=== PATIENT | male | born 1990 ===

== ENCOUNTER 2019-08-29 05:15 | Inpatient (IN) | payer OTHER ==
[2019-08-29] VITALS (8 sets, daily range): BP systolic 104–127; BP diastolic 59–80
[~2019-08-29] VITALS: Ht 179.1 cm; Wt 85.7 kg
[~2019-08-29 05:15] MED LIST: TRUVADA 200 MG1 EAC1 ORAL
[2019-08-29] MEDS ORDERED: Rocuronium Bromide 50mg/5ml Inj IV ONE (06:18)
[2019-08-29] MEDS ORDERED: LR 1000ml 1,000 ML IVLG SCH (06:28)
[2019-08-29] MEDS ORDERED: oxyCODONE HCL/Acetaminophen 5/325mg ORAL PRN (06:30)
[2019-08-29] MEDS ORDERED: Hydromorphone 0.5mg/0.5ml inj IVP PRN (06:30)
[2019-08-29] MEDS ORDERED: Ketorolac 30mg Inj IV PRN ×2 (06:30)
[2019-08-29] MEDS ORDERED: LORazepam Inj 2mg/ml 1ml IV PRN (06:30)
[2019-08-29] MEDS ORDERED: Acetaminophen (Non formulary) 100 ML IV ONE (06:30)
[2019-08-29] MEDS ORDERED: Midazolam 2mg/2ml Inj IVP PRN (06:30)
[2019-08-29] MEDS ORDERED: Metoclopramide 10mg/2ml Inj IVP PRN ×2 (06:30→07:30)
[2019-08-29] MEDS ORDERED: Meperidine 50mg/ml Inj(FOR RIGORS ONLY) IVP PRN (06:30)
[2019-08-29] MEDS ORDERED: DiphenhydrAMINE 50mg/ml Inj IVP PRN (06:30)
[2019-08-29] MEDS ORDERED: Labetalol 5mg/ml 20ml vial IV PRN (06:30)
[2019-08-29] MEDS ORDERED: Atropine Sulfate 0.4mg/ml inj IVP PRN (06:30)
[2019-08-29] MEDS ORDERED: fentaNYL 100 mcg/2 mL IV PRN (06:30)
[2019-08-29] MEDS ORDERED: HYDROcodone/Acetamin 5/325 tab ORAL PRN ×2 (06:30→07:30)
[2019-08-29] MEDS ORDERED: HYDROcodone/Acetamin 7.5/325 tab ORAL PRN ×3 (06:30→07:30)
--- NOTE | 2019-08-29 06:31 | Anethesia Preoperative Eval ---
Anesthesia Pre-op PMH/ROS General Date of Evaluation: Aug 29, 2019 Time of Evaluation: 07:21 Anesthesiologist: Jeimy ASA Score: ASA 1 Mallampati Score Class I : Soft palate, uvula, fauces, pillars visible Class II: Soft palate, uvula, fauces visible Class III: Soft palate, base of uvula visible Class IV: Only hard plate visible Mallampati Classification: Class I Surgeon: Elizabeth Diagnosis: Neck Pain Surgical Procedure: ADR C5-6 Family History: no anesthesia problems Allergies: Coded Allergies: No Known Allergies (Unverified , 08/26/19) Medications: see eMAR Patient NPO?: Yes NPO Date: Aug 28, 2019 NPO Time: 2300 Past Medical History Neurologic/Psychiatric: Reports: depression/anxiety PSxH Narrative: ORIF R ankle, R thumb Anesthesia Pre-op Phys. Exam Physician Exam Last Vital Signs Date Time Temp Pulse Resp B/P (MAP) Pulse Ox O2 Delivery O2 Flow Rate FiO2 08/29/19 06:01 97.9 63 20 115/72 (86) 100 08/29/19 05:52 Room Air Constitutional: NAD Neurologic: CN 2-12 intact Cardiovascular: RRR Respiratory: CTA Gastrointestinal: S/NT/ND Airway Exam Mallampati Score: Class I MO: full ROM: limited Teeth: intact Anesthesia Pre-op A/P Risk Assessment & Plan Assessment: ASA 1 Plan: GA, SED, GlideScope Go Status Change Before Surgery: No Pre-Antibiotics Dru Grams Ancef IV Given Within 1 Hr of Incision: Yes Time Given: 07:41 Josesito Munson MD Aug 29, 2019 06:31
[2019-08-29] MEDS ORDERED: Sodium Chloride 10ml vial INJ ONE (06:40)
[2019-08-29] MEDS ORDERED: Lidocaine 1% MPF 10mg/ml 5ml ONE (06:40)
[2019-08-29] MEDS ORDERED: Dexamethasone 4mg/ml vial ONE (06:40)
[2019-08-29] MEDS ORDERED: fentaNYL 100 mcg/2 mL IV ONE ×2 (06:41→09:06)
[2019-08-29] MEDS ORDERED: Bacitracin 50000 Units Vial ONE (06:52)
[2019-08-29] MEDS ORDERED: Thrombin 5000 units TOPIC ONE (06:52)
[2019-08-29] MEDS ORDERED: Gelfoam Size TOPIC ONE (06:52)
[2019-08-29] MEDS ORDERED: Vancomycin 1gm vial IVPB ONE (06:52)
[2019-08-29] MEDS ORDERED: Propofol 1,000mg/ 100ml btl IV ONE (07:00)
[2019-08-29] MEDS ORDERED: ceFAZolin sod 2 GM in D5W 110 ML IVPB ONE (07:00)
[2019-08-29] MEDS ORDERED: Lidocaine 1% Plain 30 ml INJ ONE (07:05)
--- NOTE | 2019-08-29 07:23 | Pre-Procedure Note/Attestation ---
Pre-Procedure Note/Attestation Complete Prior to Procedure Planned Procedure: not applicable Procedure Narrative: Cervical 56 artificial disc replacement Indications for Procedure Pre-Operative Diagnosis: C56 herniation Attestation I attest that I discussed the nature of the procedure; its benefits; risks and complications; and alternatives (and the risks and benefits of such alternatives ), prior to the procedure, with the patient (or the patient's legal field sales representative). I attest that, if there was a reasonable possibility of needing a blood transfusion, the patient (or the patient's legal field sales representative) was given the [facility] standardized written summary, pursuant to the Fidel Pickrell Blood Safety Act ([place] Health and Safety Code # 1645, as amended). I attest that I re-evaluated the patient just prior to the surgery and that there has been no change in the patient's H&P, except as documented below: Manny Johnson MD Aug 29, 2019 07:23
--- NOTE | 2019-08-29 07:24 | Brief Operative Note ---
Immediate Post Operative Note Operative Note Chief Complaint: neck pain and shoulder interscapular pain bilateral Pre-op Diagnosis: C56 herniation Procedure: Cervical 56 artificial disc replacement Post-op Diagnosis: same as pre-op Findings: consistent w/pre-op dx studies Surgeon: Elizabeth Center Hole Reamer: Nate Anesthesia: general Specimen: none Complications: none Condition: stable Fluids: IV Estimated Blood Loss: minimal Drains: none Implant(s) used?: Yes - Prodisc c sz 5 Manny Johnson MD Aug 29, 2019 07:24
[2019-08-29] MEDS ORDERED: NS Irrig 1000ml ONE (07:30)
[2019-08-29] MEDS ORDERED: Milk of Magnesia 30ml Ud ORAL PRN (07:30)
[2019-08-29] MEDS ORDERED: Sterile Water Irrig 1000ml IRRIG ONE (07:30)
[2019-08-29] MEDS ORDERED: HYDROmorphone 1mg/ml Carpuject IVP PRN (07:30)
[2019-08-29] MEDS ORDERED: Morphine Sulfate 4mg/ml Inj (IV USE ONLY) IV PRN ×2 (07:30)
[2019-08-29] MEDS ORDERED: LR 1000ml ONE (07:30)
[2019-08-29] MEDS ORDERED: Morphine Sulfate 2mg/ml Inj(IV/IM USE ONLY) IV PRN (07:30)
[2019-08-29] MEDS ORDERED: Naloxone 0.4mg/ml Inj IVP PRN (07:30)
[2019-08-29] MEDS ORDERED: Chloraseptic Spray 20mL Bottle ORAL PRN (07:30)
[2019-08-29] MEDS ORDERED: Neostigmine 1mg/ml 10ml Inj ONE (07:30)
[2019-08-29] MEDS ORDERED: Glycopyrrolate 0.2mg/ml 1ml Vial ONE (08:57)
[2019-08-29] MEDS ORDERED: Docusate 100mg cap ORAL SCH (09:00)
--- NOTE | 2019-08-29 09:34 | Immediate Post-Op Evaluation ---
Immediate Post-Op Evalulation Immediate Post-Op Evalulation Procedure: ADR C5-6 Date of Evaluation: Aug 29, 2019 Time of Evaluation: 09:45 IV Fluids: 800 LR Blood Products: 0 Estimated Blood Loss: 25 Urinary Output: 200 Blood Pressure Systolic: 108 Blood Pressure Diastolic: 63 Pulse Rate: 59 Respiratory Rate: 16 O2 Sat by Pulse Oximetry: 100 Temperature (Fahrenheit): 97 Pain Score (1-10): 2 Nausea: No Vomiting: No Complications 0 Patient Status: awake, patent, extubated, none Hydration Status: adequate Dru Grams Ancef IV Given Within 1 Hr of Incision: Yes Time Given: 07:41 Josesito Munson MD Aug 29, 2019 09:34
--- NOTE | 2019-08-29 09:50 | Diagnostic Imaging Report ---
INDICATION: Pain, intraoperative TECHNIQUE: Intraoperative imaging Fluoroscopy time: 38.9 seconds Total dose: 0.50113 mGym2 Total number of images: 3 COMPARISON: None FINDINGS: Intraoperative images document placement of a disc prosthesis at the C5-6 level. This appears well aligned. IMPRESSION: Intraoperative imaging, as described
--- NOTE | 2019-08-29 10:17 | NUR ---
CASE MANAGEMENT:REVIEW 29 YR OLD MALE HERE FOR ELECTIVE SURGERY SI: NECK PAIN AND SHOULDER INTERSCAPULAR PAIN 97.9 63 20 115/72 100% ON RA IS: TO SURGERY: CERVICAL ARTIFICIAL DISC REPLACEMENT : CURRENTLY IN SURGERY INTERQUAL CRITERIA MET
--- NOTE | 2019-08-29 10:50 | NUR ---
NURSE NOTES: Received patient from recovery,patient is awake and alert and oriented.Dermabond to neck area intact,ice pack to area as ordered.02 0n at2 L N/ C. IV in the left arm intact.Call light within reach
[2019-08-29] MEDS ORDERED: Dexamethasone 4mg/ml vial IVP SCH (12:00)
[2019-08-29] MEDS ORDERED: NS w/KCl 20mEq 1000ml 1,000 ML IV SCH (12:00)
--- NOTE | 2019-08-29 13:49 | NUR ---
PT EVALUATION NOTE Patient seen for initial evaluation. Patient educated in log roll technique and cervical precautions. Patient demonstrates independence with all functional mobility and proper log roll technique. Skilled inpatient PT intervention not indicated, patient discharged from PT, Viviana WALKER notified. Addendum: 08/29/19 at 1350 by HARSHAL POWERS PT Amended: Links added.
--- NOTE | 2019-08-29 14:45 | Operative Note - Dictated ---
DATE OF OPERATION: 08/29/2019 SURGEON: Manny Johnson MD, Orthopedic Spine Surgeon. WELDER ASSISTANT: ADAMA Estrella. PREOPERATIVE DIAGNOSES: 1. Intractable neck pain. 2. Radiculopathy. 3. Herniation, C5-C6. 4. Neural foraminal stenosis C5-C6. 5. Stenosis. POSTOPERATIVE DIAGNOSES: 1. Intractable neck pain. 2. Radiculopathy. 3. Herniation, C5-C6. 4. Neural foraminal stenosis C5-C6. 5. Stenosis. PROCEDURE PERFORMED: 1. Anterior cervical discectomy and artificial disc replacement of C5-C6 using a Synthes Prodisc C 5 height. 2. Use of intraoperative microscope. 3. Motor evoked potential monitoring. 4. Somatosensory evoked potential monitoring. 5. Supervision and interpretation of fluoroscopy. COMPLICATIONS: None. ANESTHESIA: General. ESTIMATED BLOOD LOSS: Less than 100 mL. INDICATIONS FOR SURGERY: Mr. Zuniga presents today for artificial disc replacement at C5-C6. This patient is a 29-year-old male who has a history of diagnoses as listed above. As of result of this, the patient sustained intractable neck pain, radiculopathy, herniation C5-C6, neural foraminal stenosis C5-C6, stenosis. We tried a course of conservative management but despite this course there was still a significant component of persistent, recalcitrant neck pain and arm pain. The MRI demonstrated significant neural foraminal compromise secondary to disc herniations at C5-C6. For this pain in the past, he has undergone therapy with Dr. Gerard at [facility]. He tried ice packs and even electrotherapy. He tried medications in the form of Motrin, aspirin, ibuprofen, codeine, and [place]. He had also undergone a course of conservative management with Dr. Harmon, which included injections as well as a block at C5-C6. On his surgical preoperative planning, he demonstrated C5-C6 to have measurements, which were increased in his neural foramina on the left compared to the right. These were documented in our surgical reasoning/preoperative planning note. As such, we felt he was a candidate for C5-C6 artificial disc replacement. We had a long discussion with Juan regarding the risks and benefits of surgery. Our discussion included but was not limited to nonoperative management, chiropractic management, another epidural steroid injection as well definitive management in the form of surgery. We recommended an artificial disc replacement of C5-C6 as final definitive management. We reviewed the risks and benefits of surgery with the patient. Our discussion included a comprehensive review of the clinical issues and the nature of the clinical decision. We reviewed the alternatives, including doing nothing. The patient elected to proceed accordingly with an artificial disc replacement of C5-C6. We had a long discussion regarding the risks, alternatives and benefits of surgery. Our description of the risks included a discussion in person as well as a signed consent which detailed all pertinent risks from the procedure itself. Briefly, our discussion included but was not limited to infection, bleeding, pseudarthrosis, spinal cord injury, neurovascular injury, dural tear, CSF leak, neuropathy, paralysis, permanent weakness/drop foot/drop arm, paresthesias, blindness, palsy and weakness. The patient understood there may be a need for a revision surgery or additional procedures. Approach-related complications including dysphonia, dysphagia, blindness, permanent vocal cord and neural injury, hematoma, swallowing and breathing difficulty. Medical complications were reviewed including liver, kidney, shock, cardiopulmonary failure, anesthesia complications including , swelling, damage to the musculature, larynx/voice injury or loss, esophagus/throat, trachea, blood vessels and muscles/muscular sprain and lungs/pneumothorax during this surgical procedure; injury to deeper structures may be temporary or permanent. After this review of risks, the patient understood these and elected to proceed. A written and verbal consent was given. We discussed the pros and cons of all the alternatives. We discussed the uncertainties associated with the decision. Afterwards I assessed the patient's understanding and explored their preferences. All questions were answered and no guarantees were given. Medical clearance was obtained prior to surgery. INTRAOPERATIVE FINDINGS: At C5-C6, there was a disc, which was not collapsed, not calcified whatsoever. There was a slight bone spur on the inferior endplate of C5 noted. The disc itself was well hydrated and not calcified. A calcified disc will be more with a degenerative process. Upon removal of the disc near the posterior longitudinal ligament, I noticed a vertical tear in the PLL. This tear was predominantly midline. This tear gave rise to what appeared to be a broad based disc herniation applying central pressure on the thecal sac. There was also a tear noted on the far lateral margin on the left side. This tear was vertical or approximately 10 degrees cephalad to caudad. Through this tear, I mobilized it with a Microsect-1B, which gave rise to a left-sided neural foraminal disc fragment, which was encroaching on the neural foramina on the left side and this was resected with a combination of Kerrison 1 and Kerrison 2 rongeurs. DESCRIPTION OF PROCEDURE: Under the benefit of general endotracheal anesthesia and with the assistance of the entire operative team, the patient was moved from the [facility] onto the operative table in the supine position. The head was secured and carefully positioned appropriately. Bilateral arms were secured with GelPads and foam and all bony prominences were padded. For the bilateral lower extremities SCD and SHELDON hose were placed for DVT prophylaxis. A surgical timeout was called which corroborated our planned procedure of artificial disc replacement of an artificial disc replacement of C5-C6. Preoperative antibiotics were administered within 30 minutes of the incision for antibiotic prophylaxis. Using lateral fluoroscopic radiography, the operative levels were delineated. Next the wound was prepped and draped with Chlorhexidine and sterile drapes. An incision was based on lateral fluoroscopy and we centered our incision at the C5-C6 Interspace and next using a standard Huizar-Colbert anterior based approach the incision was taken down through the skin and subcutaneous tissues until the vertebral bodies and their corresponding disc spaces were visualized. A needle was placed into the interspace to confirm placement of the operative interspace and we performed the remainder of procedure under microscopic visualization. Next, using a bipolar and Bovie cautery to ensure meticulous hemostasis, the longus colli was mobilized bilaterally and retractors were placed deep to the longus colli bilaterally to address retraction. Next we turned our attention to the radical anterior discectomy. This was initially performed at C5-C6. First by using a 15 blade scalpel followed by narrow pituitaries and a Microsect 5-B curette was used to denude the endplate of all cartilaginous tissue. Next using a Istpika Rupesh AM8 drillbit the vertebral endplates were denuded of all residual cartilage in a qerp-li-rods and layer by layer fashion, and ultimately the posterior uncinate joints bilaterally and posterior osteophytic lips and margins were carefully denuded until clear visualization of the posterior longitudinal ligament was possible. An endplate preparation was performed in the exact same fashion using an intervertebral furniture designer, sequential distraction was obtained throughout the disc space. We saw a tear/rent in the PLL and this was carefully mobilized and dissected using a Microsect 1-B curet until we visualized a discrete disc herniation with compression of the spinal cord as well as neural foramina which was left more than right sided. This neural foraminal compression was carefully resected using a Kerrison-1 and Kerrison-2 rongeurs until complete decompression of the spinal cord was visualized and complete decompression of the neural foramina and nerve root therein as well as the axilla and lateral margin of the nerve root was visualized and subsequently completely decompressed. The family was notified at one hour intervals throughout the procedure to provide for consistent updates. We next turned our attention towards trialing our implant within the disc space. We initially tried size 5 and this Prodisc Cervical spacer fit well in regards to depth and width. This implant was opened and prepared. Next under direct visualization I confirmed excellent fit in respect to the anterior and posterior vertebral bodies, the uncinate joints and in regards to toggle. Once satisfied with this placement on serial AP and lateral fluoroscopy I turned my attention towards cutting our lindsey. These were cut in the bones using a reciprocating drill and afterwards all free fragments of bone were irrigated. Next FloSeal was placed into the interspace, then removed in its entirety and the implant was inserted using fluoroscopic guidance. Next the Synthes Prodisc C size 5 ADR was then carefully advanced and secured into the intervertebral space under direct visualization and with supervision of AP and lateral fluoroscopic views. We next turned our attention towards trialing our implant within the disc space. We initially tried size 5 and afterwards size 6 trial from the [employer] interlock system at each level, which appeared to be appropriate under AP and lateral fluoroscopy as well as in terms of its height, depth, width and lack of toggle. The PEEK polyetheretherketone interbody cages were then both packed with allograft bone from [employer] and local autograft bone matrix. Next these were then carefully advanced and secured into their intervertebral spaces under direct visualization and with supervision of AP and lateral fluoroscopic views. After a finger sweep we confirmed removal of all sponges. The retractor was removed and we next turned our attention to meticulous hemostasis with FloSeal and bipolar cautery. After the sponge and needle count was again found to be correct with our second count, we next turned our attention to closure. The wound was again copiously irrigated with antibiotic impregnated saline Closure consisted of 4-0 clear nylon for the platysma, and 5-0 clear nylon for the superficial skin. Final skin closure and dressings consisted of Dermabond. Prior to final closure, a final radiograph was obtained which demonstrated the hardware is intact with excellent position throughout. The patient tolerated the procedure well. The patient was carefully extubated after the conclusion of surgery. We discussed the findings of the surgery with the family upon completion of the case. At this point the patient was transferred to the spine floor for further observation. Manny Johnson M.D. DR: ELVIN JOB#: [id number] CC:
--- NOTE | 2019-08-29 15:10 | NUR ---
NURSE NOTES: Spoke to regarding discharge. Per : 1. Ok discharge patient today, 2. continue home medication. Order noted and carried out.
[2019-08-29] MEDS ORDERED: NORCO 10-325 T1 EACH ORAL (15:13)
--- NOTE | 2019-08-29 15:13 | NUR ---
NURSE NOTES: patient ambulated in the hill with Physical Therapist today,gait steady.patient ate lunch tolerated.Patient state he is ready to be discharged.DR Johnson aware with discharged order given.
[2019-08-29] MEDS ORDERED: CARISOPRODOL350 MG ORAL (15:14)
[2019-08-29] MEDS ORDERED: ceFAZolin sod 1 GM in D5W 55 ML IV SCH (15:30)
--- NOTE | 2019-08-29 15:50 | NUR ---
NURSE NOTES: Patient discharge with discharge given.patient has discharge prescription .IV removed,ID hospital band removed,patient accompany down to private vehicle.Family here to take patient home.
[2019-08-30 09:16] VITALS: BP 116/68
--- NOTE | 2019-08-30 09:16 | 48 Hour Post Anesthesia Eval ---
Post Anesthesia Evaluation Procedure: ADR C5-6 Date of Evaluation: Aug 29, 2019 Time of Evaluation: 14:20 Blood Pressure Systolic: 116 0: 68 Pulse Rate: 74 Respiratory Rate: 16 Temperature (Fahrenheit): 97.6 O2 Sat by Pulse Oximetry: 98 Airway: patent Nausea: No Vomiting: No Pain Intensity: 2 Hydration Status: adequate Cardiopulmonary Status: stable Mental Status/LOC: patient returned to baseline Follow-up Care/Observations: n/a Post-Anesthesia Complications: none Follow-up care needed: ready to discharge Jaden Marvin MD Aug 30, 2019 09:16
--- NOTE | 2019-08-31 09:56 | Discharge Summary ---
Discharge Summary Discharge Summary _ DATE OF ADMISSION: 08/29/2019 DATE OF DISCHARGE: 08/29/2019 DISCHARGED BY: Dr. Manny Johnson BRIEF HOSPITAL COURSE: Patient is a 29-year-old male, who sustained an intractable neck pain, radiculopathy, herniation C5-C6, neural foraminal stenosis C5-C6, who tried a course of conservative management, but despite this course, there was still significant component of persistent, recalcitrant neck and arm pain. MRI demonstrated significant neural foraminal compromise secondary to disc herniations at C5-C6. He was admitted on 08/29/2019 and underwent anterior cervical discectomy and disc replacement of C5-C6. He tolerated procedure well. Surgery was uneventful. Post-operatively, patient was admitted for post- op care. He was placed on SCDs for DVT prophylaxis and was encouraged use of incentive spirometer. Patient was given pain management. He was seen by PT. Diet was advanced. Incision was clean, dry and intact. Patient was ambulating well with good pain control and was tolerating diet. Patient was eventually cleared for discharge home. FINAL DIAGNOSES: 1. Intractable neck pain. 2. Radiculopathy. 3. Herniation, C5-C6. 4. Neural foraminal stenosis C5-C6. 5. Stenosis. PROCEDURE PERFORMED: 1. Anterior cervical discectomy and artificial disc replacement of C5-C6 using a Synthes Prodisc C 5 height. 2. Use of intraoperative microscope. 3. Motor evoked potential monitoring. 4. Somatosensory evoked potential monitoring. 5. Supervision and interpretation of fluoroscopy. (Refer to Operative Report) DISCHARGE DISPOSITION: Patient was discharged home. DISCHARGE MEDICATIONS: Refer to Medication Reconciliation Sheet. DISCHARGE INSTRUCTIONS: Post-op instructions given. Follow-up in a week. I have been assigned to complete a DC summary on this account, I was not involved with the patient's management.--YONY Damian Jacqueline Robles NP Aug 31, 2019 09:56
== END 2019-08-29 15:55 | disposition home or self-care (01) | DRG 518 ==
LOC: SDSOVERFLO 05:15 → 3E 10:45
PROC: 0RR30JZ Replacement of Cervical Vertebral Disc with Synthetic Substitute, Open Approach (ICD-10-PCS; principal; 2019-08-29 07:00)
DX: M50.122 Cervical disc disorder at C5-C6 level with radiculopathy (principal); M48.02 Spinal stenosis, cervical region
CPT/HCPCS: 36415; 72040; 76000; 86850; 86900; 86901; 87081; 94003; 94150; J2405; J2710